=== PATIENT | male | born 1945 | race Caucasian/White ===

== ENCOUNTER → 2017-05-23 | Outpatient (CLI) | payer MEDICARE ==
[~2017-05-23] MED LIST: AMARYL2 MG PO; AMARYL4 MG PO; ASPIRIN ADULT L81 M1 PO; Coumadin2.5 MG PO; FENOFIBRATE160 MG PO; FUROSEMIDE20 M1 PO; HYDR25T PO; LIPITOR20 MG PO; LOPRESSOR25 MG PO; METFORMIN1000 MG PO; NITROGLYCERIN0.4 MG PO; NORVASC5 MG PO; TAMSULOSIN HCL0.4 MG PO; VASOTEC10 MG PO; VICODIN ES 7501 TAB PO
== END | disposition home or self-care (01) ==
LOC: ORTHO 00:24
DX: M47.892 Other spondylosis, cervical region (principal); M48.02 Spinal stenosis, cervical region; M75.91 Shoulder lesion, unspecified, right shoulder

== ENCOUNTER → 2017-05-27 | Outpatient (CLI) | payer MEDICARE | END | disposition home or self-care (01) | LOC: MRI 13:00 | DX: M75.101 Unspecified rotator cuff tear or rupture of right shoulder, not specified as traumatic (principal); M19.011 Primary osteoarthritis, right shoulder; M46.02 Spinal enthesopathy, cervical region; M48.02 Spinal stenosis, cervical region; M62.58 Muscle wasting and atrophy, not elsewhere classified, other site ==

== ENCOUNTER → 2017-06-27 | Outpatient (CLI) | payer MEDICARE | END | disposition home or self-care (01) | LOC: LAB 11:22 | DX: N20.0 Calculus of kidney (principal); N40.1 Benign prostatic hyperplasia with lower urinary tract symptoms; E11.9 Type 2 diabetes mellitus without complications ==

== ENCOUNTER → 2017-10-01 | Outpatient (CLI) | payer MEDICARE | END | disposition home or self-care (01) | LOC: RAD 08:00 | DX: M25.561 Pain in right knee (principal); Z96.651 Presence of right artificial knee joint ==

== ENCOUNTER → 2017-10-08 | Outpatient (CLI) | payer MEDICARE | END | disposition home or self-care (01) | LOC: RAD 11:39 | DX: M51.37 Other intervertebral disc degeneration, lumbosacral region (principal); G95.89 Other specified diseases of spinal cord ==

== ENCOUNTER → 2017-11-13 | Day surgery (SDC) | payer MEDICARE ==
[~2017-11-13] VITALS: Ht 172.7 cm; Wt 87.1 kg
[~2017-11-13] MED LIST changes: +COLACE100 MG PO; +LASIX20 MG PO
--- NOTE | ~2017-11-13 | O ---
[place], [place] OPERATIVE NOTE NAME: ABRAN CASTILLO UNIT #: [id number] ROOM: DOCTOR: STEVEN SANTOS MD BIRTHDATE: [birth year] DOS: 11/13/2017 HISTORY OF PRESENT ILLNESS: This is a 72-year-old patient who has presented with chief complaint of change in bowel habit, diarrhea, more dominant in constipation. ALLERGIES: No known medication. FAMILY HISTORY: Noncontributory. PAST SURGICAL HISTORY: Cholecystectomy, CABG x 4 vessel bypass, right total knee. PAST MEDICAL HISTORY: Coronary artery disease, hypertension, diabetes mellitus, hypercholesterolemia. SOCIAL HISTORY: Nonsmoker, nonalcohol consumer. PROCEDURE: Today's procedure part of investigation is colonoscopy plus polypectomies. PREMEDICATION: Versed and Diprivan. SCOPE: Olympus folding colonoscope 10L video. REPORT: After putting the patient in left lateral position and application of lubricant to the scope, the scope was introduced. Thereafter, under direct visualization, advanced through the length of colon without difficulty. Evidence of diverticulosis was appreciated mostly in the left side of the colon. A sessile polypoid lesion in sigmoid colon, a sessile polypoid lesion in hepatic flexure with piecemeal polypectomy removed. Base of the cecum explored, appendiceal orifice identified, and ileocecal valve was defined. The patient extubated, tolerated the procedure well. IMPRESSION: Sigmoid polyp, hepatic flexure polyp, status post piecemeal polypectomy, diverticulosis. PLAN AND DISCUSSION: High fiber fruit diet. ACTIVITY: Ad lexy. FOLLOWUP: As outpatient routinely with you in office and p.r.n. visit with us in GI Clinic. I thank you very much indeed for your kind referral. As far as the stool management is concerned, we are going to start this gentleman on Colace 100 mg 1 at bedtime to serve the purpose of stool softeners. Diet is going to be fiber and fruit added. Thank you again for your kind referral. [place], [place] OPERATIVE NOTE NAME: ABRAN CASTILLO UNIT #: [id number] ROOM: DOCTOR: STEVEN SANTOS MD BIRTHDATE: [birth year] STEVEN SANTOS MD CM:OPRECORD:OPERATIVE NOTE 1211 1301 STEVEN SANTOS MD 11/13/17 1301 interface
[2017-11-13 11:00] VITALS: BP 130/87
[2017-11-13 12:10] VITALS: BP 94/64
[2017-11-13 12:25] VITALS: BP 131/72
[2017-11-13 12:40] VITALS: BP 146/74
== END | disposition home or self-care (01) ==
LOC: SDC 11-08 12:30
DX: D12.3 Benign neoplasm of transverse colon (principal); K63.5 Polyp of colon; Z90.49 Acquired absence of other specified parts of digestive tract; Z95.1 Presence of aortocoronary bypass graft; I25.10 Atherosclerotic heart disease of native coronary artery without angina pectoris; E11.9 Type 2 diabetes mellitus without complications; E78.00 Pure hypercholesterolemia, unspecified; K57.30 Diverticulosis of large intestine without perforation or abscess without bleeding; I11.0 Hypertensive heart disease with heart failure; I50.9 Heart failure, unspecified; I25.2 Old myocardial infarction; Z98.890 Other specified postprocedural states

== ENCOUNTER 2017-12-03 11:37 | Emergency (ER) | payer MEDICARE ==
[~2017-12-03] VITALS: Ht 172.7 cm; Wt 87.1 kg
[2017-12-03 11:41] VITALS: BP 134/65
[2017-12-03] MEDS ORDERED: ROBAXIN500 M1 PO (14:40)
[2017-12-03] MEDS ORDERED: PREDNISONE20 M1 PO (14:40)
== END 2017-12-03 14:40 | disposition home or self-care (01) ==
LOC: ED 11:37
DX: M54.42 Lumbago with sciatica, left side (principal); Z79.899 Other long term (current) drug therapy; Z79.82 Long term (current) use of aspirin; Z79.84 Long term (current) use of oral hypoglycemic drugs; Z90.49 Acquired absence of other specified parts of digestive tract; Z95.1 Presence of aortocoronary bypass graft

== ENCOUNTER 2017-12-09 09:04 | Emergency (ER) | payer MEDICARE ==
[~2017-12-09] VITALS: Ht 172.7 cm; Wt 87.1 kg
[~2017-12-09 09:04] MED LIST changes: +PREDNISONE20 M1 PO; +ROBAXIN500 M1 PO
[2017-12-09 09:09] VITALS: BP 130/90
[2017-12-09] MEDS ORDERED: CHLORZOXAZONE500 M2 PO (09:15)
[2017-12-09] MEDS ORDERED: PREDNISONE10 MG PO (09:15)
== END 2017-12-09 09:20 | disposition home or self-care (01) ==
LOC: ED 09:04
DX: M54.42 Lumbago with sciatica, left side (principal); I25.10 Atherosclerotic heart disease of native coronary artery without angina pectoris; I25.2 Old myocardial infarction; E78.2 Mixed hyperlipidemia; I48.91 Unspecified atrial fibrillation; I13.0 Hypertensive heart and chronic kidney disease with heart failure and stage 1 through stage 4 chronic kidney disease, or unspecified chronic kidney disease; E11.22 Type 2 diabetes mellitus with diabetic chronic kidney disease; N18.3 Chronic kidney disease, stage 3 (moderate); I50.9 Heart failure, unspecified; Z79.899 Other long term (current) drug therapy; Z98.890 Other specified postprocedural states; Z90.49 Acquired absence of other specified parts of digestive tract; Z95.5 Presence of coronary angioplasty implant and graft; Z79.82 Long term (current) use of aspirin

== ENCOUNTER → 2017-12-13 | Outpatient (CLI) | payer MEDICARE ==
[~2017-12-13] MED LIST changes: +CHLORZOXAZONE500 M2 PO; +PREDNISONE10 MG PO
== END | disposition home or self-care (01) ==
LOC: MRI 08:50
DX: M51.27 Other intervertebral disc displacement, lumbosacral region (principal); M43.16 Spondylolisthesis, lumbar region; R93.8 Abnormal findings on diagnostic imaging of other specified body structures

== ENCOUNTER → 2018-07-29 | Outpatient (CLI) | payer MEDICARE | END | disposition home or self-care (01) | LOC: RESCLI 04:20 | DX: Z12.5 Encounter for screening for malignant neoplasm of prostate (principal); K21.9 Gastro-esophageal reflux disease without esophagitis; L81.9 Disorder of pigmentation, unspecified; N40.0 Benign prostatic hyperplasia without lower urinary tract symptoms; E78.2 Mixed hyperlipidemia; I12.9 Hypertensive chronic kidney disease with stage 1 through stage 4 chronic kidney disease, or unspecified chronic kidney disease; E11.22 Type 2 diabetes mellitus with diabetic chronic kidney disease; N18.3 Chronic kidney disease, stage 3 (moderate); Z79.899 Other long term (current) drug therapy; Z79.82 Long term (current) use of aspirin; Z88.8 Allergy status to other drugs, medicaments and biological substances ==

== ENCOUNTER → 2018-08-21 | Outpatient (CLI) | payer MEDICARE | END | disposition home or self-care (01) | LOC: RESCLI 11:37 | DX: I13.0 Hypertensive heart and chronic kidney disease with heart failure and stage 1 through stage 4 chronic kidney disease, or unspecified chronic kidney disease (principal); E11.22 Type 2 diabetes mellitus with diabetic chronic kidney disease; N18.3 Chronic kidney disease, stage 3 (moderate); I50.32 Chronic diastolic (congestive) heart failure; I25.810 Atherosclerosis of coronary artery bypass graft(s) without angina pectoris; E66.3 Overweight; N40.0 Benign prostatic hyperplasia without lower urinary tract symptoms; K21.9 Gastro-esophageal reflux disease without esophagitis; E78.2 Mixed hyperlipidemia; J40 Bronchitis, not specified as acute or chronic; Z79.82 Long term (current) use of aspirin; Z79.899 Other long term (current) drug therapy; Z90.49 Acquired absence of other specified parts of digestive tract; Z88.8 Allergy status to other drugs, medicaments and biological substances ==

== ENCOUNTER → 2018-10-21 | Outpatient (CLI) | payer MEDICARE ==
[~2018-10-21] MED LIST changes: +ATORVASTATIN CA80 M1 PO; +GLUCOPHAGE500 M1 PO; +Humalog SQ; +IMDUR SA60 M1 PO; +LEVEMIR FL100 UNIT/1 SQ; +XARE15TA PO
== END | disposition home or self-care (01) ==
LOC: RESCLI 01:03
DX: I13.0 Hypertensive heart and chronic kidney disease with heart failure and stage 1 through stage 4 chronic kidney disease, or unspecified chronic kidney disease (principal); E11.22 Type 2 diabetes mellitus with diabetic chronic kidney disease; N18.3 Chronic kidney disease, stage 3 (moderate); I50.32 Chronic diastolic (congestive) heart failure; K21.9 Gastro-esophageal reflux disease without esophagitis; E78.2 Mixed hyperlipidemia; N40.0 Benign prostatic hyperplasia without lower urinary tract symptoms; E66.3 Overweight; I25.810 Atherosclerosis of coronary artery bypass graft(s) without angina pectoris; I48.91 Unspecified atrial fibrillation; E78.5 Hyperlipidemia, unspecified; Z79.899 Other long term (current) drug therapy; Z79.82 Long term (current) use of aspirin

== ENCOUNTER → 2018-12-04 | Outpatient (CLI) | payer MEDICARE | END | disposition home or self-care (01) | LOC: US 13:24 | DX: E11.22 Type 2 diabetes mellitus with diabetic chronic kidney disease (principal); N18.9 Chronic kidney disease, unspecified; N26.1 Atrophy of kidney (terminal) ==

== ENCOUNTER → 2019-01-06 | Outpatient (CLI) | payer MEDICARE | END | disposition home or self-care (01) | LOC: RESCLI 00:27 | DX: Z09 Encounter for follow-up examination after completed treatment for conditions other than malignant neoplasm (principal); I48.91 Unspecified atrial fibrillation; I13.0 Hypertensive heart and chronic kidney disease with heart failure and stage 1 through stage 4 chronic kidney disease, or unspecified chronic kidney disease; E11.22 Type 2 diabetes mellitus with diabetic chronic kidney disease; E11.42 Type 2 diabetes mellitus with diabetic polyneuropathy; N18.3 Chronic kidney disease, stage 3 (moderate); I50.32 Chronic diastolic (congestive) heart failure; E78.2 Mixed hyperlipidemia; N40.0 Benign prostatic hyperplasia without lower urinary tract symptoms; I25.810 Atherosclerosis of coronary artery bypass graft(s) without angina pectoris; E55.9 Vitamin D deficiency, unspecified; E66.09 Other obesity due to excess calories; Z68.30 Body mass index [BMI] 30.0-30.9, adult; Z79.84 Long term (current) use of oral hypoglycemic drugs; Z79.899 Other long term (current) drug therapy; Z90.49 Acquired absence of other specified parts of digestive tract; Z88.8 Allergy status to other drugs, medicaments and biological substances ==

== ENCOUNTER → 2019-02-03 | Outpatient (CLI) | payer MEDICARE | END | disposition home or self-care (01) | LOC: RESCLI 01:20 | DX: I48.91 Unspecified atrial fibrillation (principal); I13.0 Hypertensive heart and chronic kidney disease with heart failure and stage 1 through stage 4 chronic kidney disease, or unspecified chronic kidney disease; E11.22 Type 2 diabetes mellitus with diabetic chronic kidney disease; I50.32 Chronic diastolic (congestive) heart failure; N18.3 Chronic kidney disease, stage 3 (moderate); E78.2 Mixed hyperlipidemia; I25.810 Atherosclerosis of coronary artery bypass graft(s) without angina pectoris; E11.42 Type 2 diabetes mellitus with diabetic polyneuropathy; E55.9 Vitamin D deficiency, unspecified; E66.09 Other obesity due to excess calories; Z68.30 Body mass index [BMI] 30.0-30.9, adult; Z79.4 Long term (current) use of insulin; Z79.899 Other long term (current) drug therapy ==

== ENCOUNTER → 2019-04-28 | Outpatient (CLI) | payer MEDICARE | END | disposition home or self-care (01) | LOC: RESCLI 00:46 | DX: I48.91 Unspecified atrial fibrillation (principal); I13.0 Hypertensive heart and chronic kidney disease with heart failure and stage 1 through stage 4 chronic kidney disease, or unspecified chronic kidney disease; E11.22 Type 2 diabetes mellitus with diabetic chronic kidney disease; I50.32 Chronic diastolic (congestive) heart failure; N18.3 Chronic kidney disease, stage 3 (moderate); E78.2 Mixed hyperlipidemia; N40.0 Benign prostatic hyperplasia without lower urinary tract symptoms; I25.810 Atherosclerosis of coronary artery bypass graft(s) without angina pectoris; E11.42 Type 2 diabetes mellitus with diabetic polyneuropathy; E55.9 Vitamin D deficiency, unspecified; E66.09 Other obesity due to excess calories; Z68.30 Body mass index [BMI] 30.0-30.9, adult; Z79.899 Other long term (current) drug therapy ==

== ENCOUNTER → 2019-08-06 | Outpatient (CLI) | payer MEDICARE ==
[2019-08-06 10:25] LABS: BASO % 0.5 % (0.0-1.0); EOS # 0.3 10*3/uL (0.0-0.4); EOS % 4.9 % (1.0-4.0); HEMATOCRIT 50.2 % (42.0-52.0); HEMOGLOBIN 15.8 g/dl (14.0-18.0); LYMPH # 1.9 10*3/uL (1.3-4.4); LYMPH % 32.3 % (27.0-41.0); MEAN CELL VOLUME 89.6 fl (80.0-94.0); MEAN CORPUSCULAR HGB 28.2 pg (27.0-31.0); MEAN CORPUSCULAR HGB CONC 31.5 g/dl (33.0-37.0); MEAN PLATELET VOLUME 11.6 fl (9.6-12.3); MONO # 0.7 10*3/uL (0.1-1.0); MONO % 11.4 % (3.0-9.0); NEUT % 50.7 % (47.0-73.0); PLATELET COUNT AUTOMATED 167 10*3/uL (130-400); RED CELL DISTRI WIDTH 14.5 % (0-14.5)
[2019-08-06 10:53] LABS: ALBUMIN 3.2 gm/dl (3.1-4.5); CREATININE 1.6 mg/dL (0.70-1.30); POTASSIUM 4.6 mmol/L (3.5-5.1); TOTAL PROTEIN 6.8 gm/dL (6.4-8.2)
[2019-08-06 11:24] LABS: VITAMIN D, 25-HYDROXY 45.3 ng/mL (30-100)
== END | disposition home or self-care (01) ==
LOC: LAB 09:42
PROVIDERS: Internal Medicine
DX: I12.9 Hypertensive chronic kidney disease with stage 1 through stage 4 chronic kidney disease, or unspecified chronic kidney disease (principal); N18.3 Chronic kidney disease, stage 3 (moderate); Z79.899 Other long term (current) drug therapy

== ENCOUNTER → 2019-08-12 | Outpatient (CLI) | payer MEDICARE | END | disposition home or self-care (01) | LOC: RESCLI 01:33 | DX: I48.91 Unspecified atrial fibrillation (principal); I13.0 Hypertensive heart and chronic kidney disease with heart failure and stage 1 through stage 4 chronic kidney disease, or unspecified chronic kidney disease; E11.22 Type 2 diabetes mellitus with diabetic chronic kidney disease; E11.42 Type 2 diabetes mellitus with diabetic polyneuropathy; I50.32 Chronic diastolic (congestive) heart failure; N18.3 Chronic kidney disease, stage 3 (moderate); I25.810 Atherosclerosis of coronary artery bypass graft(s) without angina pectoris; E78.2 Mixed hyperlipidemia; N40.0 Benign prostatic hyperplasia without lower urinary tract symptoms; E55.9 Vitamin D deficiency, unspecified; E66.09 Other obesity due to excess calories; Z68.30 Body mass index [BMI] 30.0-30.9, adult; Z79.899 Other long term (current) drug therapy; Z79.4 Long term (current) use of insulin ==

== ENCOUNTER → 2020-02-04 | Outpatient (CLI) | payer MEDICARE | END | disposition home or self-care (01) | LOC: RESCLI 00:33 | DX: E11.22 Type 2 diabetes mellitus with diabetic chronic kidney disease (principal); N18.3 Chronic kidney disease, stage 3 (moderate); I25.810 Atherosclerosis of coronary artery bypass graft(s) without angina pectoris; I13.0 Hypertensive heart and chronic kidney disease with heart failure and stage 1 through stage 4 chronic kidney disease, or unspecified chronic kidney disease; E78.2 Mixed hyperlipidemia; N40.0 Benign prostatic hyperplasia without lower urinary tract symptoms; I50.32 Chronic diastolic (congestive) heart failure; K21.9 Gastro-esophageal reflux disease without esophagitis; G62.9 Polyneuropathy, unspecified; I48.0 Paroxysmal atrial fibrillation; E55.9 Vitamin D deficiency, unspecified; Z68.30 Body mass index [BMI] 30.0-30.9, adult; Z79.899 Other long term (current) drug therapy; Z88.8 Allergy status to other drugs, medicaments and biological substances ==

== ENCOUNTER → 2020-03-29 | Outpatient (CLI) | payer MEDICARE | END | disposition home or self-care (01) | LOC: RESCLI 00:47 | DX: I25.810 Atherosclerosis of coronary artery bypass graft(s) without angina pectoris (principal); E11.9 Type 2 diabetes mellitus without complications; E78.2 Mixed hyperlipidemia; N40.0 Benign prostatic hyperplasia without lower urinary tract symptoms; I13.0 Hypertensive heart and chronic kidney disease with heart failure and stage 1 through stage 4 chronic kidney disease, or unspecified chronic kidney disease; N18.3 Chronic kidney disease, stage 3 (moderate); I50.32 Chronic diastolic (congestive) heart failure; I48.0 Paroxysmal atrial fibrillation; K21.9 Gastro-esophageal reflux disease without esophagitis; Z79.82 Long term (current) use of aspirin; Z79.84 Long term (current) use of oral hypoglycemic drugs; Z79.899 Other long term (current) drug therapy; Z98.890 Other specified postprocedural states; Z90.49 Acquired absence of other specified parts of digestive tract; Z95.1 Presence of aortocoronary bypass graft; Z95.828 Presence of other vascular implants and grafts; Z23 Encounter for immunization ==

== ENCOUNTER → 2020-07-14 | Outpatient (CLI) | payer MEDICARE ==
[2020-07-14 14:15] LABS: BASO # 0.1 10*3/uL (0.0-0.1); BASO % 0.6 % (0.0-1.0); EOS # 0.6 10*3/uL (0.0-0.4); EOS % 5.5 % (1.0-4.0); HEMATOCRIT 50.7 % (42.0-52.0); LYMPH # 2.6 10*3/uL (1.3-4.4); LYMPH % 24.2 % (27.0-41.0); MEAN CELL VOLUME 91.4 fl (80.0-94.0); MEAN CORPUSCULAR HGB 28.6 pg (27.0-31.0); MEAN CORPUSCULAR HGB CONC 31.4 g/dl (33.0-37.0); MEAN PLATELET VOLUME 11.1 fl (9.6-12.3); MONO % 9.6 % (3.0-9.0); NEUT # 6.3 10*3/uL (2.3-7.9); NEUT % 59.8 % (47.0-73.0); PLATELET COUNT AUTOMATED 189 10*3/uL (130-400); RED BLOOD COUNT 5.55 10*6/uL (4.50-5.90); RED CELL DISTRI WIDTH 14.2 % (0-14.5); WHITE BLOOD COUNT 10.6 10*3/uL (4.8-10.8)
[2020-07-14 14:31] LABS: ALBUMIN 3.8 gm/dl (3.1-4.5); CREATININE 1.63 mg/dL (0.70-1.30); POTASSIUM 4.8 mmol/L (3.5-5.1); TOTAL PROTEIN 7.2 gm/dL (6.4-8.2)
== END | disposition home or self-care (01) ==
LOC: LAB 13:38
PROVIDERS: ATTEND Internal Medicine
DX: I10 Essential (primary) hypertension (principal); E55.9 Vitamin D deficiency, unspecified; R07.9 Chest pain, unspecified; Z79.899 Other long term (current) drug therapy

== ENCOUNTER → 2021-05-29 | Outpatient (CLI) | payer MEDICARE ==
[2021-05-29 12:40] LABS: BASO % 0.3 % (0.0-1.0); BILIRUBIN Negative (Negative); BLOOD Trace-Intact (Negative); CLARITY Clear (Clear); COLOR Yellow (Yellow); EOS # 0.3 10*3/uL (0.0-0.4); EOS % 2.9 % (1.0-4.0); GLUCOSE 3+ (Negative); HEMATOCRIT 50.4 % (42.0-52.0); KETONE Negative (Negative); LEUKO ESTERASE Negative (Negative); LYMPH # 2.3 10*3/uL (1.3-4.4); LYMPH % 22.4 % (27.0-41.0); MEAN CELL VOLUME 88.1 fl (80.0-94.0); MEAN CORPUSCULAR HGB 28.1 pg (27.0-31.0); MEAN CORPUSCULAR HGB CONC 31.9 g/dl (33.0-37.0); MEAN PLATELET VOLUME 11.1 fl (9.6-12.3); MONO # 0.9 10*3/uL (0.1-1.0); MONO % 8.7 % (3.0-9.0); NEUT # 6.7 10*3/uL (2.3-7.9); NEUT % 65.3 % (47.0-73.0); NITRITE Negative (Negative); PH 5.5 (4.5-8.0); PLATELET COUNT AUTOMATED 144 10*3/uL (130-400); RED BLOOD COUNT 5.72 10*6/uL (4.50-5.90); RED CELL DISTRI WIDTH 13.8 % (0-14.5); SPECIFIC GRAVITY >= 1.030 (1.001-1.030); WHITE BLOOD COUNT 10.2 10*3/uL (4.8-10.8)
[2021-05-29 12:48] LABS: BACTERIA TRACE; CALCIUM OXALATE CRYSTALS Trace; EPITHELIAL CELLS 0-2; RBC 16-20 rbc/hpf (0-2); WBC 0-2 wbc/hpf (0-5)
[2021-05-29 12:54] LABS: ALBUMIN 3.4 gm/dl (3.1-4.5); CREATININE 1.47 mg/dL (0.70-1.30); POTASSIUM 4.5 mmol/L (3.5-5.1); TOTAL PROTEIN 6.7 gm/dL (6.4-8.2)
== END | disposition home or self-care (01) ==
LOC: LAB 12:21
PROVIDERS: ATTEND Internal Medicine Nephrology
DX: R31.9 Hematuria, unspecified (principal)

== ENCOUNTER → 2021-05-31 | Outpatient (CLI) | payer MEDICARE ==
[2021-05-31 13:32] LABS: VITAMIN D, 25-HYDROXY 47.3 ng/mL (30-100)
== END | disposition home or self-care (01) ==
LOC: RESCLI 01:06
PROVIDERS: Internal Medicine; ATTEND Student in an Organized Health Care Education/Training Program
DX: E11.9 Type 2 diabetes mellitus without complications (principal); N40.0 Benign prostatic hyperplasia without lower urinary tract symptoms; I25.810 Atherosclerosis of coronary artery bypass graft(s) without angina pectoris; I48.0 Paroxysmal atrial fibrillation; E78.2 Mixed hyperlipidemia; R31.9 Hematuria, unspecified; E53.8 Deficiency of other specified B group vitamins; E55.9 Vitamin D deficiency, unspecified; Z79.899 Other long term (current) drug therapy

== ENCOUNTER → 2021-06-02 | Outpatient (CLI) | payer MEDICARE | END | disposition home or self-care (01) | LOC: US 05-26 11:00 | PROVIDERS: ATTEND Internal Medicine | DX: N20.0 Calculus of kidney (principal); N28.1 Cyst of kidney, acquired; R31.9 Hematuria, unspecified ==

== ENCOUNTER → 2021-09-20 | Outpatient (CLI) | payer MEDICARE | END | disposition home or self-care (01) | LOC: RESCLI 01:59 | PROVIDERS: ATTEND Internal Medicine | DX: E78.2 Mixed hyperlipidemia (principal); E11.22 Type 2 diabetes mellitus with diabetic chronic kidney disease; N18.9 Chronic kidney disease, unspecified; I48.0 Paroxysmal atrial fibrillation; N40.0 Benign prostatic hyperplasia without lower urinary tract symptoms; I25.810 Atherosclerosis of coronary artery bypass graft(s) without angina pectoris; Z79.84 Long term (current) use of oral hypoglycemic drugs; Z79.899 Other long term (current) drug therapy ==

== ENCOUNTER → 2021-11-17 | Outpatient (CLI) | payer MEDICARE ==
[~2021-11-17] MED LIST changes: +JARDIANCE25 MG PO
== END | disposition home or self-care (01) ==
LOC: RESCLI 01:32
PROVIDERS: ATTEND Internal Medicine
DX: M54.2 Cervicalgia (principal); R42 Dizziness and giddiness; I10 Essential (primary) hypertension; E11.9 Type 2 diabetes mellitus without complications; E78.5 Hyperlipidemia, unspecified; I25.10 Atherosclerotic heart disease of native coronary artery without angina pectoris; Z95.1 Presence of aortocoronary bypass graft; Z79.899 Other long term (current) drug therapy; Z79.01 Long term (current) use of anticoagulants

== ENCOUNTER → 2021-12-26 | Outpatient (CLI) | payer MEDICARE | END | disposition home or self-care (01) | LOC: LAB 13:26 | PROVIDERS: ATTEND Internal Medicine | DX: E11.9 Type 2 diabetes mellitus without complications (principal) ==

== ENCOUNTER → 2022-01-10 | Outpatient (CLI) | payer MEDICARE | END | disposition home or self-care (01) | LOC: RESCLI 00:38 | PROVIDERS: ATTEND Student in an Organized Health Care Education/Training Program | DX: E11.22 Type 2 diabetes mellitus with diabetic chronic kidney disease (principal); R55 Syncope and collapse; I25.810 Atherosclerosis of coronary artery bypass graft(s) without angina pectoris; E78.2 Mixed hyperlipidemia; H80.90 Unspecified otosclerosis, unspecified ear; Z79.899 Other long term (current) drug therapy; Z79.82 Long term (current) use of aspirin; I11.0 Hypertensive heart disease with heart failure; N40.0 Benign prostatic hyperplasia without lower urinary tract symptoms; N18.30 Chronic kidney disease, stage 3 unspecified; I50.30 Unspecified diastolic (congestive) heart failure; Z90.49 Acquired absence of other specified parts of digestive tract ==

== ENCOUNTER → 2022-01-29 | Outpatient (CLI) | payer MEDICARE | END | disposition home or self-care (01) | LOC: US 13:53 | PROVIDERS: ATTEND Internal Medicine Nephrology | DX: I65.23 Occlusion and stenosis of bilateral carotid arteries (principal); E04.2 Nontoxic multinodular goiter ==

== ENCOUNTER → 2022-02-05 | Outpatient (CLI) | payer MEDICARE | END | disposition home or self-care (01) | LOC: RESCLI 04:14 | PROVIDERS: ATTEND Internal Medicine | DX: E04.1 Nontoxic single thyroid nodule (principal); L98.9 Disorder of the skin and subcutaneous tissue, unspecified; R42 Dizziness and giddiness; E78.2 Mixed hyperlipidemia; I25.810 Atherosclerosis of coronary artery bypass graft(s) without angina pectoris; I48.0 Paroxysmal atrial fibrillation; E11.9 Type 2 diabetes mellitus without complications; Z79.899 Other long term (current) drug therapy; Z79.82 Long term (current) use of aspirin ==

== ENCOUNTER → 2022-03-28 | Outpatient (CLI) | payer MEDICARE ==
[2022-03-28 11:13] LABS: CREATININE 1.42 mg/dL (0.70-1.30); POTASSIUM 4.4 mmol/L (3.5-5.1)
== END | disposition home or self-care (01) ==
LOC: RESCLI 01:18
PROVIDERS: Internal Medicine; ATTEND Internal Medicine
DX: E11.22 Type 2 diabetes mellitus with diabetic chronic kidney disease (principal); I13.0 Hypertensive heart and chronic kidney disease with heart failure and stage 1 through stage 4 chronic kidney disease, or unspecified chronic kidney disease; N18.30 Chronic kidney disease, stage 3 unspecified; I25.10 Atherosclerotic heart disease of native coronary artery without angina pectoris; I50.9 Heart failure, unspecified; I48.91 Unspecified atrial fibrillation; Z90.49 Acquired absence of other specified parts of digestive tract; Z79.899 Other long term (current) drug therapy; Z79.01 Long term (current) use of anticoagulants

== ENCOUNTER → 2022-06-27 | Outpatient (CLI) | payer MEDICARE ==
[2022-06-27 12:31] LABS: BASO # 0.1 10*3/uL (0.0-0.1); BASO % 0.7 % (0.0-1.0); EOS # 0.5 10*3/uL (0.0-0.4); EOS % 4.8 % (1.0-4.0); HEMATOCRIT 58.8 % (42.0-52.0); LYMPH # 2.7 10*3/uL (1.3-4.4); LYMPH % 26.5 % (27.0-41.0); MEAN CELL VOLUME 88.8 fl (80.0-94.0); MEAN CORPUSCULAR HGB 28.5 pg (27.0-31.0); MEAN CORPUSCULAR HGB CONC 32.1 g/dl (33.0-37.0); MEAN PLATELET VOLUME 11.4 fl (9.6-12.3); MONO # 0.9 10*3/uL (0.1-1.0); MONO % 8.7 % (3.0-9.0); NEUT % 58.9 % (47.0-73.0); PLATELET COUNT AUTOMATED 143 10*3/uL (130-400); RED BLOOD COUNT 6.62 10*6/uL (4.50-5.90); RED CELL DISTRI WIDTH 15.2 % (0-14.5); WHITE BLOOD COUNT 10.1 10*3/uL (4.8-10.8)
[2022-06-27 12:52] LABS: CREATININE 1.66 mg/dL (0.70-1.30); POTASSIUM 4.6 mmol/L (3.5-5.1); TOTAL PROTEIN 7.2 gm/dL (6.4-8.2)
== END | disposition home or self-care (01) ==
LOC: RESCLI 00:26
PROVIDERS: Internal Medicine; ATTEND Internal Medicine
DX: I13.0 Hypertensive heart and chronic kidney disease with heart failure and stage 1 through stage 4 chronic kidney disease, or unspecified chronic kidney disease (principal); E11.22 Type 2 diabetes mellitus with diabetic chronic kidney disease; N18.30 Chronic kidney disease, stage 3 unspecified; I50.9 Heart failure, unspecified; I48.0 Paroxysmal atrial fibrillation; E78.2 Mixed hyperlipidemia; R42 Dizziness and giddiness; F17.200 Nicotine dependence, unspecified, uncomplicated; I25.810 Atherosclerosis of coronary artery bypass graft(s) without angina pectoris; E78.5 Hyperlipidemia, unspecified; K57.90 Diverticulosis of intestine, part unspecified, without perforation or abscess without bleeding; Z95.1 Presence of aortocoronary bypass graft; Z90.49 Acquired absence of other specified parts of digestive tract; Z98.890 Other specified postprocedural states; Z79.899 Other long term (current) drug therapy

== ENCOUNTER → 2022-07-13 | Outpatient (CLI) | payer MEDICARE | END | disposition home or self-care (01) | LOC: RESCLI 13:22 | PROVIDERS: ATTEND Internal Medicine | DX: R58 Hemorrhage, not elsewhere classified (principal); I13.0 Hypertensive heart and chronic kidney disease with heart failure and stage 1 through stage 4 chronic kidney disease, or unspecified chronic kidney disease; E11.22 Type 2 diabetes mellitus with diabetic chronic kidney disease; N18.30 Chronic kidney disease, stage 3 unspecified; I50.9 Heart failure, unspecified; I25.10 Atherosclerotic heart disease of native coronary artery without angina pectoris; K57.32 Diverticulitis of large intestine without perforation or abscess without bleeding; K57.30 Diverticulosis of large intestine without perforation or abscess without bleeding; I49.1 Atrial premature depolarization; I48.91 Unspecified atrial fibrillation; Z95.1 Presence of aortocoronary bypass graft; Z96.651 Presence of right artificial knee joint; Z90.49 Acquired absence of other specified parts of digestive tract; Z79.899 Other long term (current) drug therapy ==

== ENCOUNTER → 2022-07-16 | Outpatient (CLI) | payer MEDICARE ==
[2022-07-16 12:36] LABS: BASO # 0.1 10*3/uL (0.0-0.1); BASO % 0.8 % (0.0-1.0); EOS # 0.6 10*3/uL (0.0-0.4); EOS % 6.7 % (1.0-4.0); HEMATOCRIT 56.6 % (42.0-52.0); LYMPH # 2.7 10*3/uL (1.3-4.4); LYMPH % 30.1 % (27.0-41.0); MEAN CORPUSCULAR HGB 28.6 pg (27.0-31.0); MEAN CORPUSCULAR HGB CONC 32.5 g/dl (33.0-37.0); MEAN PLATELET VOLUME 11.6 fl (9.6-12.3); MONO % 10.8 % (3.0-9.0); NEUT # 4.6 10*3/uL (2.3-7.9); NEUT % 51.4 % (47.0-73.0); PLATELET COUNT AUTOMATED 150 10*3/uL (130-400); RED BLOOD COUNT 6.43 10*6/uL (4.50-5.90); RED CELL DISTRI WIDTH 14.1 % (0-14.5); WHITE BLOOD COUNT 8.9 10*3/uL (4.8-10.8)
== END | disposition home or self-care (01) ==
LOC: RESCLI 11:48
PROVIDERS: Student in an Organized Health Care Education/Training Program; ATTEND Internal Medicine
DX: I13.0 Hypertensive heart and chronic kidney disease with heart failure and stage 1 through stage 4 chronic kidney disease, or unspecified chronic kidney disease (principal); E11.22 Type 2 diabetes mellitus with diabetic chronic kidney disease; N18.30 Chronic kidney disease, stage 3 unspecified; I50.9 Heart failure, unspecified; E78.5 Hyperlipidemia, unspecified; E55.9 Vitamin D deficiency, unspecified; K21.9 Gastro-esophageal reflux disease without esophagitis; N40.0 Benign prostatic hyperplasia without lower urinary tract symptoms; I48.0 Paroxysmal atrial fibrillation; R23.3 Spontaneous ecchymoses; I25.10 Atherosclerotic heart disease of native coronary artery without angina pectoris; M25.512 Pain in left shoulder; G47.33 Obstructive sleep apnea (adult) (pediatric); Z90.49 Acquired absence of other specified parts of digestive tract; Z87.891 Personal history of nicotine dependence; Z98.890 Other specified postprocedural states; Z95.0 Presence of cardiac pacemaker; Z82.49 Family history of ischemic heart disease and other diseases of the circulatory system; Z88.8 Allergy status to other drugs, medicaments and biological substances; Z79.82 Long term (current) use of aspirin; Z79.899 Other long term (current) drug therapy

== ENCOUNTER → 2022-08-02 | Outpatient (CLI) | payer MEDICARE ==
[2022-08-02 14:49] LABS: HEMATOCRIT 57.5 % (42.0-52.0); MEAN CELL VOLUME 87.4 fl (80.0-94.0); MEAN CORPUSCULAR HGB 28.9 pg (27.0-31.0); MEAN PLATELET VOLUME 11.3 fl (9.6-12.3); PLATELET COUNT AUTOMATED 171 10*3/uL (130-400); RED BLOOD COUNT 6.58 10*6/uL (4.50-5.90); RED CELL DISTRI WIDTH 14.7 % (0-14.5); WHITE BLOOD COUNT 9.6 10*3/uL (4.8-10.8)
[2022-08-02 14:54] LABS: BILIRUBIN Negative (Negative); BLOOD Negative (Negative); CLARITY Clear (Clear); COLOR Yellow (Yellow); GLUCOSE 3+ (Negative); KETONE Trace (Negative); LEUKO ESTERASE Negative (Negative); NITRITE Negative (Negative); SPECIFIC GRAVITY >= 1.030 (1.001-1.030); UROBILINOGEN 0.2 E.U./dl (0.0-1.0)
[2022-08-02 15:06] LABS: CREATININE 1.52 mg/dL (0.70-1.30); POTASSIUM 4.2 mmol/L (3.4-5.1); TOTAL PROTEIN 7.3 gm/dL (6.0-8.0)
[2022-08-02 15:47] LABS: RBC 0-2 rbc/hpf (0-2); WBC 0-2 wbc/hpf (0-5)
[2022-08-02 16:55] LABS: BASOPHILS 3 % (0-1); PLATELET SUFFICIENCY NORMAL (NORMAL); TOTAL CELLS COUNTED 100 #CELLS
[2022-08-02 16:56] LABS: POLYCHROMASIA SLIGHT
[2022-08-03 22:05] LABS: ERYTHROPOIETIN 17.1 mIU/mL (2.6-18.5)
[2022-08-04 00:06] LABS: A/G RATIO 1.2 (0.7-1.7); ALBUMIN 3.9 g/dL (2.9-4.4); ALPHA-1-GLOBULIN 0.3 g/dL (0.0-0.4); BETA GLOBULIN 1.2 g/dL (0.7-1.3); FREE KAPPA LIGHT CHAINS 69.9 mg/L (3.3-19.4); FREE LAMBDA LIGHT CHAINS 34.6 mg/L (5.7-26.3); GLOBULIN, TOTAL 3.4 g/dL (2.2-3.9); IMMUNOGLOBULIN G, QNT 910 mg/dL (603-1613); IMMUNOGLOBULIN M, QNT 54 mg/dL (15-143); KAPPA/LAMBDA RATIO 2.02 (0.26-1.65); M-SPIKE Not Observed g/dL (Not Observed); TOTAL PROTEIN, SERUM 7.3 g/dL (6.0-8.5)
[2022-08-06 13:06] LABS: ALBUMIN, URINE RANDOM 47.3 % (.); ALPHA-1-GLOBULIN, URINE 2.2 % (.); ALPHA-2-GLOBULIN, URINE 15.3 % (.); GAMMA GLOBULIN, URINE 15.7 % (.); M-SPIKE % Not Observed % (Not Observed); PROTEIN,TOTAL - URINE RANDOM 12.3 mg/dL (Not Estab.)
== END | disposition home or self-care (01) ==
LOC: LAB 13:28
PROVIDERS: ATTEND Internal Medicine
DX: N18.9 Chronic kidney disease, unspecified (principal); D75.1 Secondary polycythemia

== ENCOUNTER → 2022-08-31 | Outpatient (CLI) | payer MEDICARE | END | disposition home or self-care (01) | LOC: CT 09:00 | PROVIDERS: ATTEND Internal Medicine Hematology & Oncology | DX: K57.90 Diverticulosis of intestine, part unspecified, without perforation or abscess without bleeding (principal); N26.1 Atrophy of kidney (terminal); D75.1 Secondary polycythemia; R63.4 Abnormal weight loss ==

== ENCOUNTER → 2022-09-26 | Outpatient (CLI) | payer MEDICARE ==
[2022-09-26 12:00] LABS: BASO # 0.1 10*3/uL (0.0-0.1); BASO % 0.7 % (0.0-1.0); EOS # 0.2 10*3/uL (0.0-0.4); EOS % 2.5 % (1.0-4.0); HEMATOCRIT 55.4 % (42.0-52.0); LYMPH # 2.5 10*3/uL (1.3-4.4); LYMPH % 32.2 % (27.0-41.0); MEAN CELL VOLUME 87.7 fl (80.0-94.0); MEAN CORPUSCULAR HGB 27.5 pg (27.0-31.0); MEAN CORPUSCULAR HGB CONC 31.4 g/dl (33.0-37.0); MEAN PLATELET VOLUME 10.7 fl (9.6-12.3); MONO # 0.9 10*3/uL (0.1-1.0); MONO % 12.1 % (3.0-9.0); NEUT % 52.2 % (47.0-73.0); PLATELET COUNT AUTOMATED 204 10*3/uL (130-400); RED BLOOD COUNT 6.32 10*6/uL (4.50-5.90); RED CELL DISTRI WIDTH 14.2 % (0-14.5); WHITE BLOOD COUNT 7.6 10*3/uL (4.8-10.8)
[2022-09-26 12:19] LABS: POTASSIUM 4.2 mmol/L (3.4-5.1); TOTAL PROTEIN 7.1 gm/dL (6.0-8.0)
== END | disposition home or self-care (01) ==
LOC: RESCLI 02:29
PROVIDERS: ATTEND Internal Medicine
DX: E11.9 Type 2 diabetes mellitus without complications (principal); E78.2 Mixed hyperlipidemia; I48.0 Paroxysmal atrial fibrillation; I25.810 Atherosclerosis of coronary artery bypass graft(s) without angina pectoris; I11.0 Hypertensive heart disease with heart failure; I50.9 Heart failure, unspecified; E11.42 Type 2 diabetes mellitus with diabetic polyneuropathy; R42 Dizziness and giddiness; Z98.890 Other specified postprocedural states; Z90.49 Acquired absence of other specified parts of digestive tract; Z95.1 Presence of aortocoronary bypass graft; Z79.01 Long term (current) use of anticoagulants; Z79.899 Other long term (current) drug therapy

== ENCOUNTER → 2023-07-12 | Outpatient (CLI) | payer MEDICARE | END | disposition home or self-care (01) | LOC: RESCLI 00:33 | PROVIDERS: ATTEND Internal Medicine | DX: Z23 Encounter for immunization (principal); I48.91 Unspecified atrial fibrillation; E78.5 Hyperlipidemia, unspecified; I25.10 Atherosclerotic heart disease of native coronary artery without angina pectoris; I25.2 Old myocardial infarction; E11.22 Type 2 diabetes mellitus with diabetic chronic kidney disease; I50.9 Heart failure, unspecified; N18.30 Chronic kidney disease, stage 3 unspecified; Z95.1 Presence of aortocoronary bypass graft; Z95.5 Presence of coronary angioplasty implant and graft; Z79.899 Other long term (current) drug therapy ==

== ENCOUNTER → 2023-07-13 | Outpatient (CLI) | payer MEDICARE ==
[2023-07-13 09:49] LABS: BASO % 0.5 % (0.0-1.0); EOS # 0.3 10*3/uL (0.0-0.4); HEMATOCRIT 52.5 % (42.0-52.0); LYMPH # 1.1 10*3/uL (1.3-4.4); LYMPH % 16.5 % (27.0-41.0); MEAN CELL VOLUME 90.4 fl (80.0-94.0); MEAN CORPUSCULAR HGB 29.9 pg (27.0-31.0); MEAN CORPUSCULAR HGB CONC 33.1 g/dl (33.0-37.0); MEAN PLATELET VOLUME 11.3 fl (9.6-12.3); MONO # 0.8 10*3/uL (0.1-1.0); MONO % 11.9 % (3.0-9.0); NEUT # 4.4 10*3/uL (2.3-7.9); NEUT % 66.8 % (47.0-73.0); PLATELET COUNT AUTOMATED 158 10*3/uL (130-400); RED BLOOD COUNT 5.81 10*6/uL (4.50-5.90); WHITE BLOOD COUNT 6.6 10*3/uL (4.8-10.8)
[2023-07-13 10:19] LABS: TOTAL PROTEIN 6.8 gm/dL (6.0-8.0)
== END | disposition home or self-care (01) ==
LOC: LAB 08:56
PROVIDERS: Student in an Organized Health Care Education/Training Program; ATTEND Family Medicine
DX: E11.9 Type 2 diabetes mellitus without complications (principal); Z23 Encounter for immunization

== ENCOUNTER → 2023-10-02 | Outpatient (CLI) | payer MEDICARE ==
[2023-10-02 14:47] LABS: BASO % 0.5 % (0.0-1.0); EOS # 0.3 10*3/uL (0.0-0.4); EOS % 3.8 % (1.0-4.0); HEMATOCRIT 59.1 % (42.0-52.0); LYMPH # 2.3 10*3/uL (1.3-4.4); MEAN CELL VOLUME 92.2 fl (80.0-94.0); MEAN CORPUSCULAR HGB 28.4 pg (27.0-31.0); MEAN CORPUSCULAR HGB CONC 30.8 g/dl (33.0-37.0); MEAN PLATELET VOLUME 10.6 fl (9.6-12.3); MONO # 0.9 10*3/uL (0.1-1.0); MONO % 10.9 % (3.0-9.0); NEUT # 4.3 10*3/uL (2.3-7.9); NEUT % 55.4 % (47.0-73.0); PLATELET COUNT AUTOMATED 181 10*3/uL (130-400); RED BLOOD COUNT 6.41 10*6/uL (4.50-5.90); RED CELL DISTRI WIDTH 13.3 % (0-14.5); WHITE BLOOD COUNT 7.8 10*3/uL (4.8-10.8)
[2023-10-02 15:08] LABS: ALKALINE PHOSPHATASE 79 U/L (46-116); BUN 9 mg/dl (9-23); CHLORIDE 105 mmol/L (98-107); POTASSIUM 5.2 mmol/L (3.4-5.1); TOTAL PROTEIN 7.2 gm/dL (6.0-8.0)
[2023-10-02 15:11] LABS: SGPT/ALT < 7 U/L (5-49)
== END | disposition home or self-care (01) ==
LOC: RESCLI 01:20
PROVIDERS: Student in an Organized Health Care Education/Training Program; ATTEND Student in an Organized Health Care Education/Training Program
DX: E11.9 Type 2 diabetes mellitus without complications (principal); E04.1 Nontoxic single thyroid nodule; Z13.29 Encounter for screening for other suspected endocrine disorder; Z98.890 Other specified postprocedural states; Z90.49 Acquired absence of other specified parts of digestive tract; Z79.899 Other long term (current) drug therapy

== ENCOUNTER → 2023-10-14 | Outpatient (CLI) | payer MEDICARE | END | disposition home or self-care (01) | LOC: US 08:58 | PROVIDERS: ATTEND Internal Medicine | DX: E04.2 Nontoxic multinodular goiter (principal) ==

== ENCOUNTER → 2024-01-01 | Outpatient (CLI) | payer MEDICARE | END | disposition home or self-care (01) | LOC: RESCLI 02:08 | PROVIDERS: Student in an Organized Health Care Education/Training Program; ATTEND Internal Medicine | DX: E11.9 Type 2 diabetes mellitus without complications (principal); E55.9 Vitamin D deficiency, unspecified; E04.1 Nontoxic single thyroid nodule; R42 Dizziness and giddiness; I48.0 Paroxysmal atrial fibrillation; N52.9 Male erectile dysfunction, unspecified; Z79.899 Other long term (current) drug therapy; Z88.8 Allergy status to other drugs, medicaments and biological substances; Z98.890 Other specified postprocedural states ==

== ENCOUNTER → 2024-04-20 | Outpatient (CLI) | payer MEDICARE ==
[2024-04-20 13:31] LABS: BASO % 0.6 % (0.0-1.0); EOS # 0.2 10*3/uL (0.0-0.4); EOS % 2.8 % (1.0-4.0); HEMATOCRIT 55.5 % (42.0-52.0); LYMPH # 1.8 10*3/uL (1.3-4.4); LYMPH % 26.7 % (27.0-41.0); MEAN CORPUSCULAR HGB 28.4 pg (27.0-31.0); MONO # 0.8 10*3/uL (0.1-1.0); MONO % 11.1 % (3.0-9.0); NEUT % 58.5 % (47.0-73.0); PLATELET COUNT AUTOMATED 171 10*3/uL (130-400); RED BLOOD COUNT 6.45 10*6/uL (4.50-5.90); RED CELL DISTRI WIDTH 15.9 % (0-14.5); WHITE BLOOD COUNT 6.9 10*3/uL (4.8-10.8)
[2024-04-20 13:42] LABS: POTASSIUM 4.4 mmol/L (3.4-5.1)
== END | disposition home or self-care (01) ==
LOC: LAB 13:09
PROVIDERS: ATTEND Orthopaedic Surgery
DX: Z01.812 Encounter for preprocedural laboratory examination (principal); R73.03 Prediabetes; D68.8 Other specified coagulation defects

== ENCOUNTER → 2024-05-14 | Outpatient (CLI) | payer MEDICARE | END | disposition home or self-care (01) | LOC: RESCLI 01:53 | PROVIDERS: ATTEND Internal Medicine | DX: Z23 Encounter for immunization (principal); E78.2 Mixed hyperlipidemia; R42 Dizziness and giddiness; N52.9 Male erectile dysfunction, unspecified; I48.91 Unspecified atrial fibrillation; F17.210 Nicotine dependence, cigarettes, uncomplicated; I13.0 Hypertensive heart and chronic kidney disease with heart failure and stage 1 through stage 4 chronic kidney disease, or unspecified chronic kidney disease; E11.22 Type 2 diabetes mellitus with diabetic chronic kidney disease; N18.30 Chronic kidney disease, stage 3 unspecified; I50.30 Unspecified diastolic (congestive) heart failure; Z95.5 Presence of coronary angioplasty implant and graft; Z98.890 Other specified postprocedural states; Z79.899 Other long term (current) drug therapy ==

== ENCOUNTER → 2024-07-01 | Outpatient (CLI) | payer MEDICARE ==
[~2024-07-01] MED LIST changes: +ADMELOG100 UNIT/1 SQ; +LANTUS100 UNIT/1 SC
== END | disposition home or self-care (01) ==
LOC: RESCLI 03:48
PROVIDERS: ATTEND Family Medicine
DX: Z23 Encounter for immunization (principal)

== ENCOUNTER → 2024-07-13 | Outpatient (CLI) | payer MEDICARE | END | disposition home or self-care (01) | LOC: CT 12:54 | PROVIDERS: ATTEND Internal Medicine | DX: Z12.2 Encounter for screening for malignant neoplasm of respiratory organs (principal); F17.210 Nicotine dependence, cigarettes, uncomplicated; N28.1 Cyst of kidney, acquired; Z90.49 Acquired absence of other specified parts of digestive tract ==

== ENCOUNTER → 2024-09-02 | Outpatient (CLI) | payer MEDICARE | END | disposition home or self-care (01) | LOC: RESCLI 01:00 | PROVIDERS: ATTEND Family Medicine | DX: E78.2 Mixed hyperlipidemia (principal); E11.9 Type 2 diabetes mellitus without complications; N40.0 Benign prostatic hyperplasia without lower urinary tract symptoms; I48.0 Paroxysmal atrial fibrillation; E55.9 Vitamin D deficiency, unspecified; E04.1 Nontoxic single thyroid nodule; E78.5 Hyperlipidemia, unspecified; N52.9 Male erectile dysfunction, unspecified; I63.9 Cerebral infarction, unspecified; I25.10 Atherosclerotic heart disease of native coronary artery without angina pectoris; R42 Dizziness and giddiness; Z79.899 Other long term (current) drug therapy; Z79.82 Long term (current) use of aspirin ==

== ENCOUNTER → 2024-10-29 | Outpatient (CLI) | payer MEDICARE ==
[~2024-10-29] MED LIST changes: +ASPIRIN ADULT L81 M2 PO; +CEPHALEXIN500 M1 PO; +MECLIZINE HYD12.5 MG PO
== END | disposition home or self-care (01) ==
LOC: RESCLI 01:25
PROVIDERS: ATTEND Student in an Organized Health Care Education/Training Program
DX: E11.9 Type 2 diabetes mellitus without complications (principal)

== ENCOUNTER → 2025-02-17 | Outpatient (CLI) | payer MEDICARE ==
[2025-02-17 16:12] LABS: BASO % 0.5 % (0.0-1.0); EOS # 0.2 10*3/uL (0.0-0.4); EOS % 1.8 % (1.0-4.0); HEMATOCRIT 53.5 % (42.0-52.0); MEAN CORPUSCULAR HGB 30.3 pg (27.0-31.0); MEAN CORPUSCULAR HGB CONC 33.3 g/dl (33.0-37.0); MEAN PLATELET VOLUME 10.4 fl (9.6-12.3); MONO # 0.9 10*3/uL (0.1-1.0); MONO % 9.8 % (3.0-9.0); NEUT # 5.5 10*3/uL (2.3-7.9); PLATELET COUNT AUTOMATED 142 10*3/uL (130-400); RED BLOOD COUNT 5.88 10*6/uL (4.50-5.90); RED CELL DISTRI WIDTH 12.8 % (0-14.5); WHITE BLOOD COUNT 8.7 10*3/uL (4.8-10.8)
[2025-02-17 16:34] LABS: BUN 11 mg/dl (9-23); CHLORIDE 104 mmol/L (98-107); CHOLESTEROL 125 mg/dL (<200); LDL CHOLESTEROL 53 mg/dL (9-159); TRIGLYCERIDES 198 mg/dl (<150)
== END | disposition home or self-care (01) ==
LOC: RESCLI 01:22 → LAB 01:22 → RESCLI 01:53
PROVIDERS: ATTEND Internal Medicine
DX: E11.9 Type 2 diabetes mellitus without complications (principal)

== ENCOUNTER → 2025-08-17 | Outpatient (CLI) | payer MEDICARE | END | disposition home or self-care (01) | LOC: LAB 02:11 → RESCLI 02:11 | PROVIDERS: ATTEND Internal Medicine | DX: E11.9 Type 2 diabetes mellitus without complications (principal) ==